=== PATIENT | female | born 1995 | race American Indian/Alaskan Native ===

== ENCOUNTER 2017-03-19 14:51 | Emergency (ER) | payer SELFPAY ==
[2017-03-19 16:52] LABS: Basophils % (Auto) 0.5 % (0.0-1.8); Eosinophils % (Auto) 2.9 % (0.0-4.3); Hematocrit 34.8 % (30.3-42.9); Mean Corpuscular HGB Conc 32 % (30-34); Mean Corpuscular Volume 81 fl (79-97); Platelet Count 414 K/mm3 (140-440); Red Blood Count 4.31 M/mm3 (3.65-5.03); Red Cell Distribution Width 15.1 % (13.2-15.2); White Blood Count 7.1 K/mm3 (4.5-11.0)
[2017-03-19 16:54] LABS: Mean Corpuscular Hemoglobin 26 pg (28-32)
[2017-03-19 17:08] LABS: Alanine Aminotransferase 9 units/L (7-56); Albumin 3.9 g/dL (3.9-5); Albumin/Globulin Ratio 1.1 %; Alkaline Phosphatase 56 units/L (35-129); Anion Gap 21 mmol/L; BUN/Creatinine Ratio 16.66; Blood Urea Nitrogen 10 mg/dL (7-17); Calcium 9.4 mg/dL (8.4-10.2); Carbon Dioxide 23 mmol/L (22-30); Chloride 100.4 mmol/L (98-107); Glucose 114 mg/dL (65-100); Lipase 18 units/L (13-60); Sodium 140 mmol/L (137-145); Total Protein 7.6 g/dL (6.3-8.2)
[2017-03-19 18:36] LABS: Bilirubin,Urine NEG (Negative); Blood,Urine LG (Negative); Ketones,Urine NEG (Negative); Leukocyte Esterase,Urine LG (Negative); Mucus,Urine FEW /HPF; Nitrite,Urine POS (Negative); Urobilinogen,Urine < 2.0 mg/dL (<2.0)
[2017-03-19] MEDS ORDERED: MOTRIN PO ONE (20:49)
[2017-03-19] MEDS ORDERED: ZOFRAN ODT PO ONE (20:49)
[2017-03-19] MEDS ORDERED: MACROBID PO ONE (20:49)
--- NOTE | 2017-03-19 20:50 | Emergency Department Report ---
ED Female HPI - General Chief complaint: Abdominal Pain Stated complaint: ABD PAIN/UNEXPLAINED BLEEDING/VAG BURNING Time Seen by Provider: 03/19/17 20:42 Source: patient, RN notes reviewed Mode of arrival: Ambulatory Limitations: No Limitations - History of Present Illness Initial comments: This is a 21-year-old female. She is previously unknown to me. She does not have a primary care doctor or dobby looms pegger. She denies chronic medical conditions. She denies surgical conditions. Indicates she is not . The patient presents to the ER with pelvic pain, dysuria, intermittent vaginal bleeding. She reports that she feels nauseous, vomited twice yesterday, nonbloody and nonbilious. She denies sore throat, complains of nonspecific rash to the left cheek, and vesicular lesion to the right lip. There is no chest pain or shortness of breath. No upper abdominal pain. Patient endorses that she is 6 reactive with one partner. She endorses a history of dyspareunia. MD Complaint: vaginal bleeding, vaginal discharge, dysuria -: Gradual Location: suprapubic Severity: mild Quality: cramping Consistency: intermittent Improves with: other (rest) Worsens with: urination, intercourse, menstrual period Are you Now?: No Associated Symptoms: vaginal discharge, vaginal bleeding, abdominal pain, nausea /vomiting, rash. denies: fever/chills, headaches, loss of appetite, dysuria, hematuria, shortness of breath, syncope, weakness - Related Data Sexually active: Yes Previous Rx's Medication Instructions Recorded Last Taken Type Acyclovir [Acyclovir Ointment] 1 applicatio TP 5XD #1 tube 03/19/17 Unknown Rx Nitrofurantoin [place]/M-Cryst 100 mg PO Q12HR #13 capsule 03/19/17 Unknown Rx [Macrobid CAP] Ondansetron [Zofran Odt] 4 mg PO QID PRN #20 tab.rapdis 03/19/17 Unknown Rx Allergies Allergy/AdvReac Type Severity Reaction Status Date / Time Sulfa (Sulfonamide AdvReac Rash Verified 03/19/17 20:20 Antibiotics) ED Review of Systems ROS: Stated complaint: ABD PAIN/UNEXPLAINED BLEEDING/VAG BURNING Other details as noted in HPI ED Past Medical Hx - Past Medical History Previous Medical History?: No - Surgical History Past Surgical History?: No - Social History Smoking Status: Current Every Day Smoker Substance Use Type: Alcohol - Medications Home Medications: Home Medications Medication Instructions Recorded Confirmed Last Taken Type Acyclovir [Acyclovir Ointment] 1 applicatio TP 5XD #1 tube 03/19/17 Unknown Rx Nitrofurantoin [place]/M-Cryst 100 mg PO Q12HR #13 capsule 03/19/17 Unknown Rx [Macrobid CAP] Ondansetron [Zofran Odt] 4 mg PO QID PRN #20 tab.rapdis 03/19/17 Unknown Rx ED Physical Exam - General Limitations: No Limitations General appearance: alert, in no apparent distress - Head Head exam: Present: atraumatic, normocephalic - Eye Eye exam: Present: normal appearance, EOMI. Absent: nystagmus - ENT ENT exam: Present: normal exam, normal orophraynx, mucous membranes moist, normal external ear exam, other (patient is noted to have vesicular lesions to the right lateral aspect of the lip.) - Neck Neck exam: Present: normal inspection, full ROM. Absent: tenderness, meningismus - Respiratory Respiratory exam: Present: normal lung sounds bilaterally. Absent: respiratory distress, wheezes, rales, rhonchi, stridor, chest wall tenderness, accessory muscle use, decreased breath sounds, prolonged expiratory - Cardiovascular Cardiovascular Exam: Present: regular rate, normal rhythm, normal heart sounds. Absent: bradycardia, tachycardia, irregular rhythm, systolic murmur, diastolic murmur, rubs, gallop - GI/Abdominal GI/Abdominal exam: Present: soft, normal bowel sounds. Absent: distended, tenderness, guarding, rebound, rigid, pulsatile mass - External exam: Present: normal external exam Speculum exam: Present: normal speculum exam, vaginal bleeding Bi-manual exam: Present: normal bi-manual exam, other (during the gynecologic examination, I am escorted by ER nurse Chanda Tiwari). Absent: cervical motion tendernes, adnexal tenderness, adnexal mass - Extremities Exam Extremities exam: Present: normal inspection, full ROM, normal capillary refill. Absent: tenderness, pedal edema, joint swelling, calf tenderness - Back Exam Back exam: Present: normal inspection, full ROM. Absent: tenderness, CVA tenderness (R), CVA tenderness (L), muscle spasm, paraspinal tenderness, vertebral tenderness - Neurological Exam Neurological exam: Present: alert, oriented X3, normal gait, other (Extraocular movements intact. Tongue midline. No facial droop. Facial sensation intact to light touch in the V1, V2, V3 distribution bilaterally. 5 and 5 strength in 4 extremities.. Sensation is intact to light touch in 4 extremities.). Absent : motor sensory deficit - Psychiatric Psychiatric exam: Present: normal affect, normal mood - Skin Skin exam: Present: warm, dry, intact, normal color, rash (left cheek macular rash, nontender, no redness, pus, streaking, crepitus) ED Course Vital Signs 03/19/17 03/19/17 03/19/17 16:20 19:54 21:07 Temperature 97.7 F Pulse Rate 64 88 78 Respiratory 16 18 18 Rate Blood Pressure 135/79 Blood Pressure 142/81 138/76 [Left] O2 Sat by Pulse 100 100 99 Oximetry - Reevaluation(s) Reevaluation #1: 03/19/17 21:39 Differential diagnosis: Urinary tract infection, oral herpes, nonspecific vaginitis Assessment and plan: 21-year-old female with urinary tract infection, oral herpes, and bacterial vaginosis. There is no cervical motion tenderness or adnexal tenderness, I therefore think pelvic inflammatory disease is unlikely. She has a nonspecific left-sided facial macular rash, there is no upper airway compromise, she can follow up with dermatology for this. She is tolerating liquid feeds at this time. She will be discharged with nausea medication, topical antivirals, Macrobid. She is instructed to follow up with outpatient gynecology. She will be discharged at this time. Return precautions are reviewed. ED Medical Decision Making - Lab Data Result diagrams: 03/19/17 16:31 03/19/17 16:31 Vital Signs 03/19/17 03/19/17 03/19/17 16:20 19:54 21:07 Temperature 97.7 F Pulse Rate 64 88 78 Respiratory 16 18 18 Rate Blood Pressure 135/79 Blood Pressure 142/81 138/76 [Left] O2 Sat by Pulse 100 100 99 Oximetry Lab Results 03/19/17 03/19/17 03/19/17 Range/Units 16:31 16:31 18:08 WBC 7.1 (4.5-11.0) K/mm3 RBC 4.31 (3.65-5.03) M/mm3 Hgb 11.0 (10.1-14.3) gm/dl Hct 34.8 (30.3-42.9) % MCV 81 (79-97) fl MCH 26 L (28-32) pg MCHC 32 (30-34) % RDW 15.1 (13.2-15.2) % Plt Count 414 (140-440) K/mm3 Lymph % (Auto) 23.4 (13.4-35.0) % [place] % (Auto) 4.8 (0.0-7.3) % Eos % (Auto) 2.9 (0.0-4.3) % Baso % (Auto) 0.5 (0.0-1.8) % Lymph # 1.7 (1.2-5.4) K/mm3 [place] # 0.3 (0.0-0.8) K/mm3 Eos # 0.2 (0.0-0.4) K/mm3 Baso # 0.0 (0.0-0.1) K/mm3 Seg Neutrophils % 68.4 (40.0-70.0) % Seg Neutrophils # 4.9 (1.8-7.7) K/mm3 Sodium 140 (137-145) mmol/L Potassium 4.0 (3.6-5.0) mmol/L Chloride 100.4 (98-107) mmol/L Carbon Dioxide 23 (22-30) mmol/L Anion Gap 21 mmol/L BUN 10 (7-17) mg/dL Creatinine 0.6 L (0.7-1.2) mg/dL Estimated GFR > 60 ml/min BUN/Creatinine Ratio 16.66 % Glucose 114 H (65-100) mg/dL Calcium 9.4 (8.4-10.2) mg/dL Total Bilirubin 0.20 (0.1-1.2) mg/dL AST 13 (5-40) units/L ALT 9 (7-56) units/L Alkaline Phosphatase 56 (35-129) units/L Total Protein 7.6 (6.3-8.2) g/dL Albumin 3.9 (3.9-5) g/dL Albumin/Globulin Ratio 1.1 % Lipase 18 (13-60) units/L Urine Color Yellow (Yellow) Urine Turbidity Cloudy (Clear) Urine pH 6.0 (5.0-7.0) Ur Specific [place] 1.017 (1.003-1.030) Urine Protein 30 mg/dl (Negative) mg/dL Urine Glucose (UA) Neg (Negative) mg/dL Urine Ketones Neg (Negative) mg/dL Urine Blood Lg (Negative) Urine Nitrite Pos (Negative) Urine Bilirubin Neg (Negative) Urine Urobilinogen < 2.0 (<2.0) mg/dL Ur Leukocyte Esterase Lg (Negative) Urine WBC (Auto) 109.0 H (0.0-6.0) /HPF Urine RBC (Auto) 31.0 (0.0-6.0) /HPF U Epithel Cells (Auto) 10.0 (0-13.0) /HPF Urine Mucus Few /HPF Urine HCG, Qual Negative (Negative) Critical care attestation.: If time is entered above; I have spent that time in minutes in the direct care of this critically ill patient, excluding procedure time. ED Disposition Clinical Impression: UTI (urinary tract infection), Rash Disposition: DISCHARGED TO HOME OR SELFCARE Is pt being admited?: No Does the pt Need Aspirin: No Condition: Stable Instructions: Urinary Tract Infection in Women (ED), Acute Rash (ED) Additional Instructions: Take the antibiotics, nausea medication, acyclovir cream as directed. Follow up with the health support specialist within the next month. Dr. Cornejo is a local health support specialist. Cultures were sent today, results will be available in the next 3-5 days. Have a primary care doctor or dobby looms pegger contact the medical records department to obtain culture results. [facility] is a local gynecology practice. Follow up with her primary care doctor or dobby looms pegger within the next week. Return to the ER right away with new pain, worsening pain, migration of pain, fevers or chills, intractable nausea or vomiting, and ability to tolerate liquid feedings. Prescriptions: Acyclovir [Acyclovir Ointment] 1 applicatio TP 5XD #1 tube Nitrofurantoin [place]/M-Cryst [Macrobid CAP] 100 mg PO Q12HR #13 capsule Ondansetron [Zofran Odt] 4 mg PO QID PRN #20 tab.rapdis PRN Reason: Nausea Referrals: PRIMARY CARE, [Primary Care Provider] - 3-5 Days [facility] [Provider Group] - 3-5 Days ALEJA ZAPIEN MD [Staff Physician] - 3-5 Days
[2017-03-19 21:08] VITALS: BP 138/76
[2017-03-19] MEDS ORDERED: FLAGYL PO ONE (21:35)
== END 2017-03-19 21:50 | disposition home or self-care (01) ==
LOC: ED 14:51
DX: N39.0 Urinary tract infection, site not specified (principal); R21 Rash and other nonspecific skin eruption; F17.200 Nicotine dependence, unspecified, uncomplicated
CPT/HCPCS: 36415; 80053; 81001; 81025; 83690; 85025; 87210; 87591; 99284; Q0162